=== PATIENT | female | born 1965 | race African-American/Black ===

== ENCOUNTER 2017-12-02 11:59 | Outpatient (CLI) ==
[2014-03-01 15:36] VITALS: BMI 30.2
--- NOTE | 2017-12-02 14:17 | DI ---
EXAM: Five views of the lumbar spine. History: Left sided sciatica Findings: No acute fracture or subluxation of the lumbar spine. Mild to moderate disc space narrowin g at L5-S1. Mild disc space narrowing seen elsewhere. A few small anterior osteophytes. Impression: No acute osseous abnormality of the cervical spine. Mild to moderate degenerative disc disease. If symptoms persist, recommend MRI
== END 2017-12-02 12:00 | disposition home or self-care (01) ==
LOC: RAD 11:59
PROVIDERS: ATTEND Physician Assistant
DX: M54.42 Lumbago with sciatica, left side (principal)

== ENCOUNTER 2017-12-11 11:40 | Outpatient (CLI) ==
[2014-03-01 15:36] VITALS: BMI 30.2
--- NOTE | 2017-12-11 13:23 | DI ---
EXAM: Two views of the chest. History: Chest pain. Comparison: Chest radiograph 02/16/2016 Findings: Heart size is normal. No focal consolidation. No appreciable pleural fluid and no pneumo thorax. No acute osseous abnormalities. Impression: No acute cardiopulmonary process
== END 2017-12-11 11:41 | disposition home or self-care (01) ==
LOC: RAD 11:40
PROVIDERS: ATTEND Physician Assistant
DX: R19.7 Diarrhea, unspecified (principal); Z86.2 Personal history of diseases of the blood and blood-forming organs and certain disorders involving the immune mechanism; M54.6 Pain in thoracic spine; R00.8 Other abnormalities of heart beat
CPT/HCPCS: 36415; 80053; 83540; 83550; 85025; 93005; 93010

== ENCOUNTER 2018-01-01 10:00 | Outpatient (RCR) | payer OTHER ==
[2014-03-01 15:36] VITALS: BMI 30.2
--- NOTE | 2017-12-13 14:16 | RS.OPPTEV2 ---
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 pt reports she is off work currently due to LBP as well as rapid heart rate. Prior Level of Function.....Patient was independent with: ADL's, Self Care, Work /Vocation, Ambulation/Mobility, Community Integration/Access Functional Limitations: Sleep, Lifting, Carrying, Standing, Bending, Squatting, Ambulation, Community Access/Integration Current Subjective/complaints:: pt states that she has been hurting since last month. pt states pain does interfere with sleep and if finds a comfortable position it is on L side. pt states pain does radiate into BLE L worse than R. Treatment Side (optional): N/A *Precautions: n/a Medical History Medical History: Hypertension Medical History Comments:: sarcoidosis Smoking Status: Never smoker Diagnostic Testing/Imaging:: Lumbar x ray: Mild to moderate DDD with disc space narrowing at L5-S1 Hx Home Medications: losartan, pepcid, hydrothiazide, flexeril, claritin D, tylenol. Patient's Goals: Decrease LBP Pain Assessment - Pain Description Pain Location: lower lumbar/SI area Current Pain Intensity: 7 Worst Pain Intensity: 8 Other Comments regarding Pain:: pt reports decreased pain to 5/10 after estim/ HP Functional Outcome Measure Oswestry LBP: 24 - G Codes & Severity Modifier G Codes & Modifier: n/a Source of G Code score: n/a Observation - Observation Posture: Forward Head, Rounded Shoulders Handedness: Right Gait - Gait Pattern General Gait Pattern Observation: No Deviations/Normal General Range of Motion: BUE and BLE WFL's Muscle Strength: BUE 5/5. BLE hip flex 4-/5 with pain, knee flex/ext 4/5, ankle DF/PF 4/5 - ROM Lumbar Flexion: Hand reach to ankles Sidebending to Left: Reach to Lateral Joint Line Sidebending to Right: Reach to Lateral Joint Line Lumbar Spine ROM Limitations: Soft Tissue Tightness, Muscle Weakness, Pain - Strength Trunk Extension: 3 Fair Trunk Flexion: 3- Fair- Trunk Lateral Flexion: 3- Fair- - Special Tests SLR Test: Positive Left, Positive Right Seated Dural Stretch Test: Positive Left, Positive Right SI Joint Compression: Positive Palpation Palpation Findings: Tenderness, Trigger Point, Muscle Guarding Comments:: pt with tenderness to lumbar spine, muscle guarding noted to L lumbar paraspinals, trigger points noted at L SI joint. Sensation - Sensation Right Upper Extremity: Intact/Normal Left Upper Extremity: Intact/Normal Right Lower Extremity: Intact/Normal Left Lower Extremity: Intact/Normal Balance - Sitting Balance Static Sitting Balance: Normal Dynamic Sitting Balance: Normal - Standing Balance Static Standing Balance: Good Dynamic Standing Balance: Good - Treatment Modality: Electrical Stim Unattended Parameters/Method Applied: IFC x 20 mins at 6 v. Treatment Area: lower lumbar Patient Position: Right Sidelying - Heat/Cryotherapy Treatment: Hot Pack Comments:: lumbar Interventions - Exercise/Activities/Manual Therapy Exercises/Activities: pt received gentle piriformis and hamstring stretches, knee to chest, isometric hip add x 5, pelvic tilt x 3 Manual Therapy: n/a HOME EXERCISE PROGRAM: pt given written HEP including: hamstring stretch, piriformis stretch, knee to chest, isometric hip add, pelvic tilt. - Charges Timed Code Treatment Minutes: 43 Total Treatment Time: 61 Procedures billed for this date of service:: eval low, estim unattended, HP EVALUATION COMPLEXITY LEVEL EVALUATION COMPLEXITY LEVEL: HISTORY: Low (HTN, LBP), EXAM OF BODY SYSTEMS: Medium (LBP, muscle tightness, radicular pain), CLINICAL PRESENTATION: Medium ( evolving), CLINICAL DECISION MAKING: Low Assessment Assessment: pt presents with LBP with radiculopathy in BLE Left worse than Right. pt with tightness in B hamstring and piriformis L worse than R. pt with muscle guarding and trigger points noted. Patient Education: Home Exercise Program, Education of Plan of Care Rehab Potential: Good Short Term Goals Goal #1: pt with decreased pain <7/10 at rest. Goal to be met by: 12/27/17 Goal #2: pt with decreased muscle tightness LLE equal to RLE Goal to be met by: 12/27/17 Goal #3: pt independent with initial HEP Goal to be met by: 12/27/17 Goal #4: pt report decreased radicular pain in BLE. 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 Goal to be met by: 01/10/18 Goal #4: pt rate pain < 5/10 at rest Goal to be met by: 01/10/18 Plan - Treatment to be Provided Procedures: Therapeutic Exercises, Therapeutic Activity, Manual Therapy, Massage , Patient Education Modalities: Electrical Stimulation, Ultrasound/Phonophoresis, Class IV Laser, Cryotherapy, Hot Packs - Treatment Plan Frequency: 2 X week Duration: 4 weeks ORDER # VISITS AND/OR THROUGH DATE: 01/10/18 - Treatment Code (1) Low back pain Code(s): M54.5 - LOW BACK PAIN Qualifiers: Chronicity: chronic Back pain laterality: unspecified Sciatica presence: with sciatica Sciatica laterality: bilateral sciatica Qualified Code(s): M54.41 - Lumbago with sciatica, right side; M54.42 - Lumbago with sciatica, left side; G89.29 - Other chronic pain (2) Muscle tightness Code(s): M62.89 - OTHER SPECIFIED DISORDERS OF MUSCLE (3) Degenerative disc disease at L5-S1 level Code(s): M51.36 - OTHER INTERVERTEBRAL DISC DEGENERATION, LUMBAR REGION
--- NOTE | 2017-12-18 13:30 | RS.OPPTDN ---
Subjective Date of Note: 12/18/17 Visit #: 2 Date of Evaluation: 12/13/17 Payer Source: Insurance Treatment Diagnosis: Low Back Pain Current Subjective/complaints:: Patient reports last treatment of HP and Estim helped to relieve some of her back pain. Reports pain decreased following treatment today. *Precautions: n/a Pain Assessment - Pain Description Pain Location: Lowback and S-I joints Pain Description: Sharp, Aching Current Pain Intensity: 7/10 prior to and 4/10 following treatment. - Treatment Modality: Electrical Stim Unattended Parameters/Method Applied: [id number] HVGC to 100p.v. with 4 large pads cross current to the bilateral lowback with HP prior to EX. Patient Position: Supine - Heat/Cryotherapy Treatment: Hot Pack (with Estim ) Interventions - Exercise/Activities/Manual Therapy Exercises/Activities: Assisted stretching gentle piriformis, hamstring stretches , and knee to chest. Isometric hip add and pelvic tilt. MET with isometric left hip ext and isometric hip flexion on right for pelvic alignment. Began bridging. Patient education of dx, body mechanics, and HEP. Patient given copy of bridging to add to HEP. Total minutes of Exercise: 25mins Manual Therapy: n/a HOME EXERCISE PROGRAM: pt given written HEP including: hamstring stretch, piriformis stretch, knee to chest, isometric hip add, pelvic tilt. Bridging. - Objective Findings Observations,measurements,etc.: Left LE longer than right by approx 3/4", partially resolved with MET today. - Charges Timed Code Treatment Minutes: 25mins Total Treatment Time: 49mins Procedures billed for this date of service:: HP, Estim unattended, EX2 Assessment: Patient responded well to treatment with reports of reduction in pain, and demos a reduction in leg length discrepancy. Patient Education: Education of diagnosis, Body/Joint mechanics, Home Exercise Program, Home Safety, Activity Modification Comments: Patient education of dx, body mechanics, safe position with lifting, and HEP. Patient given copy of new exercise. Patient demonstrates compliance with HEP?: Yes Short Term Goals Goal #1: pt with decreased pain <7/10 at rest. Goal to be met by: 12/27/17 Progress towards Goal:: Partially Met Goal #2: pt with decreased muscle tightness LLE equal to RLE Goal to be met by: 12/27/17 Progress towards Goal:: Progressing Goal #3: pt independent with initial HEP Goal to be met by: 12/27/17 Progress towards Goal:: Progressing Goal #4: pt report decreased radicular pain in BLE. Goal to be met by: 12/27/17 Rock Singer Goals Goal #1: pt with improved BLE strength 4 to 4+/5 Goal to be met by: 01/10/18 Goal #2: pt with improved flexibility in B hamstring/piriformis WFL's Goal to be met by: 01/10/18 Goal #3: pt report ability to perform daily household duties with decreased pain. Goal to be met by: 01/10/18 Goal #4: pt rate pain < 5/10 at rest Goal to be met by: 01/10/18 Plan PLAN OF CARE EXPIRES ON:: 01/10/18 ORDER # VISITS AND/OR THROUGH DATE: 01/10/18 PLAN: Continue with modalities and progress exercise to reduce pain and increase functional activity level.
--- NOTE | 2017-12-20 08:52 | RS.OPPTDN ---
Subjective Date of Note: 12/20/17 Visit #: 3 Date of Evaluation: 12/13/17 Payer Source: Insurance Treatment Diagnosis: Low Back Pain Current Subjective/complaints:: Patient reports last treatment helped to decrease her pain. States she is working on HEP and is returning to work this evening. *Precautions: n/a Pain Assessment - Pain Description Pain Location: lowback and S-I joints Current Pain Intensity: mild to mod - Treatment Modality: Electrical Stim Unattended Parameters/Method Applied: [id number] HVGC to 100p.v. with 4 large pads cross current to the bilateral lowback and S-I joints with HP prior to EX. Patient Position: Supine - Heat/Cryotherapy Treatment: Hot Pack ([id number] with Estim ) Interventions - Exercise/Activities/Manual Therapy Exercises/Activities: Assisted stretching gentle piriformis, hamstring stretches , and knee to chest. Isometric hip add and pelvic tilt. MET with isometric left hip ext and isometric hip flexion on right for pelvic alignment. Bridging. Reviewed HEP, no new additions. Total minutes of Exercise: 15mins Manual Therapy: n/a HOME EXERCISE PROGRAM: pt given written HEP including: hamstring stretch, piriformis stretch, knee to chest, isometric hip add, pelvic tilt. Bridging. - Charges Timed Code Treatment Minutes: 15mins Total Treatment Time: 40mins Procedures billed for this date of service:: HP, Estim unattended, EX Assessment: Patient responding well to treatment with reports of decreased pain. She appears to be consistent with HEP. Patient Education: Body/Joint mechanics, Home Exercise Program, Activity Modification Patient demonstrates compliance with HEP?: Yes Short Term Goals Goal #1: pt with decreased pain <7/10 at rest. Goal to be met by: 12/27/17 Progress towards Goal:: Partially Met Goal #2: pt with decreased muscle tightness LLE equal to RLE Goal to be met by: 12/27/17 Progress towards Goal:: Progressing Goal #3: pt independent with initial HEP Goal to be met by: 12/27/17 Progress towards Goal:: Progressing Goal #4: pt report decreased radicular pain in BLE. 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 Goal to be met by: 01/10/18 Goal #4: pt rate pain < 5/10 at rest Goal to be met by: 01/10/18 Plan PLAN OF CARE EXPIRES ON:: 01/10/18 ORDER # VISITS AND/OR THROUGH DATE: 01/10/18 PLAN: Progress exercise to increase patients functional activity level.
--- NOTE | 2017-12-24 10:08 | RS.OPPTDN ---
Subjective Date of Note: 12/24/17 Visit #: 4 Date of Evaluation: 12/13/17 Payer Source: Insurance Treatment Diagnosis: Low Back Pain Current Subjective/complaints:: Patient reports lowback and left S-I region pain has been much better. She reports pain is higher this morning after working a 10 hour shift last night. She states she is working on HEP as instructed. *Precautions: n/a Pain Assessment - Pain Description Pain Location: left lowback and S-I joint region Pain Description: Aching Current Pain Intensity: moderate Other Comments regarding Pain:: Reports pain as high as 8/10 last night, but has averaged 4/10 the last few days. - Treatment Modality: Electrical Stim Unattended Parameters/Method Applied: [id number] HVGC to 120p.v. 4 large pads cross current to the bilateral lumbar paraspinals and the left S-I joint area with HP prior to EX. Patient Position: Right Sidelying - Heat/Cryotherapy Treatment: Hot Pack (with Estim ) Interventions - Exercise/Activities/Manual Therapy Exercises/Activities: Assisted stretching piriformis, hamstring stretches, knee to chest, and figure 4 hip. Isometric hip add and pelvic tilt. MET with isometric left hip ext and isometric hip flexion on right for pelvic alignment, with and without manual assist. Bridging. Reveiwed self mobilization at wall with right hip flexion. Verbal and tactile cues to elicit correct muscle engagement with exercise. Total minutes of Exercise: 18mins Manual Therapy: n/a HOME EXERCISE PROGRAM: pt given written HEP including: hamstring stretch, piriformis stretch, knee to chest, isometric hip add, pelvic tilt. Bridging. - Objective Findings Observations,measurements,etc.: Patient continues to demo leg length discrepancy with left longer by approx 1/2", following MET it is reduced to just less than 1/4" approximately. - Charges Timed Code Treatment Minutes: 18mins Total Treatment Time: 42mins Procedures billed for this date of service:: HP, Estim unattended, EX Assessment: Patient responding to treatment with reports of an average pain rating at 4/10. She does report an increase in pain with long hours at work last night, but reduced with treatment and exercise. Patient Education: Home Exercise Program, Activity Modification Comments: Patient education of body mechanics with work activities. Patient encourgaged to increase bilaterla hamstring length to reduce pelvic malalignment. Patient demonstrates compliance with HEP?: Yes Short Term Goals Goal #1: pt with decreased pain <7/10 at rest. Goal to be met by: 12/27/17 Progress towards Goal:: Partially Met Goal #2: pt with decreased muscle tightness LLE equal to RLE Goal to be met by: 12/27/17 Progress towards Goal:: Progressing Goal #3: pt independent with initial HEP Goal to be met by: 12/27/17 Progress towards Goal:: Met Goal #4: pt report decreased radicular pain in BLE. 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 Goal to be met by: 01/10/18 Goal #4: pt rate pain < 5/10 at rest Goal to be met by: 01/10/18 Progress towards goal: Progressing Plan PLAN OF CARE EXPIRES ON:: 01/10/18 ORDER # VISITS AND/OR THROUGH DATE: 01/10/18 PLAN: Continue modalities and progressive exercise to reduce pain and increase patients functional activity level.
--- NOTE | 2017-12-27 14:11 | RS.OPPTDN ---
Subjective Date of Note: 12/27/17 Visit #: 5 Date of Evaluation: 12/13/17 Payer Source: Insurance Treatment Diagnosis: Low Back Pain Current Subjective/complaints:: Patient reports the pain is locaalized to back/ hips ,greater om the L today.She does not have radiculopathy. *Precautions: n/a - Treatment Modality: Electrical Stim Unattended Parameters/Method Applied: 20 mins. high volt to mid back and lumbar,channel 1 to mid back @ 60 pv,channel 2 @ 70 pv. Patient Position: Right Sidelying - Heat/Cryotherapy Treatment: Hot Pack (concurrent with e-stim) Interventions - Exercise/Activities/Manual Therapy Exercises/Activities: 20 mins.total ,for pelvic tilts,SKTC,piriformis ,LTR ,SI MET using wand for resistance,contract-relax for hamstring stretches. Total minutes of Exercise: 20 Manual Therapy: n/a HOME EXERCISE PROGRAM: pt given written HEP including: hamstring stretch, piriformis stretch, knee to chest, isometric hip add, pelvic tilt. Bridging. - Charges Timed Code Treatment Minutes: 40 Total Treatment Time: 40 Procedures billed for this date of service:: hp,e-stim ,ex Assessment: Patient has moderate L hamstring and piriformis tightness,but improves after stretches.She has no leg length discrepancy at end of session today.She is very motivated to improve ,is compliant to HEP.She does have slight increase in pain with L SKTC at end range of hip flexion. Patient Education: Education of diagnosis, Body/Joint mechanics, Home Exercise Program, Home Safety, Activity Modification, Education of Plan of Care Patient demonstrates compliance with HEP?: Yes Short Term Goals Goal #1: pt with decreased pain <7/10 at rest. Goal to be met by: 12/27/17 Progress towards Goal:: Partially Met Goal #2: pt with decreased muscle tightness LLE equal to RLE Goal to be met by: 12/27/17 (equal today) Progress towards Goal:: Progressing Goal #3: pt independent with initial HEP Goal to be met by: 12/27/17 Progress towards Goal:: Met Goal #4: pt report decreased radicular pain in BLE. Goal to be met by: 12/27/17 Progress towards Goal:: Progressing Alf Goals Goal #1: pt with improved BLE strength 4 to 4+/5 Goal to be met by: 01/10/18 Progress towards goal: Progressing Goal #2: pt with improved flexibility in B hamstring/piriformis WFL's Goal to be met by: 01/10/18 Progress towards goal: Progressing Goal #3: pt report ability to perform daily household duties with decreased pain. Goal to be met by: 01/10/18 Goal #4: pt rate pain < 5/10 at rest Goal to be met by: 01/10/18 Progress towards goal: Progressing Plan PLAN OF CARE EXPIRES ON:: 01/10/18 ORDER # VISITS AND/OR THROUGH DATE: 01/10/18 PLAN: Cont skilled PT to eliminate LBP.
--- NOTE | 2017-12-30 11:22 | RS.OPPTDN ---
Subjective Date of Note: 12/30/17 Visit #: 6 Date of Evaluation: 12/13/17 Payer Source: Insurance Treatment Diagnosis: Low Back Pain Current Subjective/complaints:: Patient reports she is progressing well. States her pain is decreasing and she is working on HEP as instructed. *Precautions: n/a Pain Assessment - Pain Description Pain Location: Lowback and Left S-I Current Pain Intensity: 5/10 Other Comments regarding Pain:: Reports average pain has decreased to 5-6/10. Reports no problems sleeping at night. - Treatment Modality: Electrical Stim Unattended Parameters/Method Applied: [id number] HVGC to 110p.v. with 4 large pads to the bilateral lower lumbar paraspinals and the left S-I joint with HP prior to EX. Patient Position: Sitting - Heat/Cryotherapy Treatment: Hot Pack ([id number] with Estim ) Interventions - Exercise/Activities/Manual Therapy Exercises/Activities: 16mins. Assisted stretching of bilateral hamstrings, SKTC , piriformis, and trunk rotation. Isometric hip flexion, alt sets of 5reps each side. Pelvic tilts and bridging. MET with isometric hip ext on right. Ended with additonal bridge. Total minutes of Exercise: 16mins Manual Therapy: n/a HOME EXERCISE PROGRAM: pt given written HEP including: hamstring stretch, piriformis stretch, knee to chest, isometric hip add, pelvic tilt. Bridging. - Charges Timed Code Treatment Minutes: 16mins Total Treatment Time: 41mins Procedures billed for this date of service:: HP, Estim unattended, EX Assessment: Patient reporting reduction in pain and consistently working on HEP. Patient Education: Body/Joint mechanics, Home Exercise Program, Activity Modification Comments: Discussed patient safety with daily activities at home and work. Patient demonstrates compliance with HEP?: Yes Short Term Goals Goal #1: pt with decreased pain <7/10 at rest. Goal to be met by: 12/27/17 Progress towards Goal:: Met Goal #2: pt with decreased muscle tightness LLE equal to RLE Goal to be met by: 12/27/17 (equal today) Progress towards Goal:: Partially Met Goal #3: pt independent with initial HEP Goal to be met by: 12/27/17 Progress towards Goal:: Met Goal #4: pt report decreased radicular pain in BLE. 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 Goal to be met by: 01/10/18 Progress towards goal: Progressing Goal #4: pt rate pain < 5/10 at rest Goal to be met by: 01/10/18 Progress towards goal: Partially Met (Rates at 5-6/10 on average) Plan PLAN OF CARE EXPIRES ON:: 01/10/18 ORDER # VISITS AND/OR THROUGH DATE: 01/10/18 PLAN: Continue modalities and progress exercise this week to reduce pain and increase functional activity level.
--- NOTE | 2018-01-01 13:33 | RS.OPPTDN ---
Subjective Date of Note: 01/01/18 Visit #: 7 Date of Evaluation: 12/13/17 Payer Source: Insurance Treatment Diagnosis: Low Back Pain Current Subjective/complaints:: Reports pain up this morning due to work midnight shift last night. Reports feeling much better after treatment today. *Precautions: n/a Pain Assessment - Pain Description Pain Location: left S-I and lower lumbar paraspinals Current Pain Intensity: 5/10, mild following treatment Other Comments regarding Pain:: Patient reports pain is up due to working midnight shift. - Treatment Modality: Electrical Stim Unattended Parameters/Method Applied: [id number] HVGC 80p.v. with 4 large pads to the left S- I joint and lumbar paraspinal with HP prior to EX. Patient Position: Right Sidelying - Heat/Cryotherapy Treatment: Hot Pack (with Estim) Interventions - Exercise/Activities/Manual Therapy Exercises/Activities: 17mins. Assisted stretching of bilateral hamstrings, SKTC , piriformis, and trunk rotation. MET with isometric hip ext on right and flexion on left in different positions. Isometric hip ER, 3s/3reps each. Pelvic tilt and bridging. Total minutes of Exercise: 17mins Manual Therapy: n/a HOME EXERCISE PROGRAM: pt given written HEP including: hamstring stretch, piriformis stretch, knee to chest, isometric hip add, pelvic tilt. Bridging. - Objective Findings Observations,measurements,etc.: Left LE slightly longer than right, resolved with MET. 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 Patient Education: Body/Joint mechanics, Home Exercise Program, Home Safety Comments: Continued patient education and emphasized safe body mechanics with lifting and ADL's. Patient demonstrates compliance with HEP?: Yes Short Term Goals Goal #1: pt with decreased pain <7/10 at rest. Goal to be met by: 12/27/17 Progress towards Goal:: Met Goal #2: pt with decreased muscle tightness LLE equal to RLE Goal to be met by: 12/27/17 (equal today) Progress towards Goal:: Partially Met Goal #3: pt independent with initial HEP Goal to be met by: 12/27/17 Progress towards Goal:: Met Goal #4: pt report decreased radicular pain in BLE. Goal to be met by: 12/27/17 Progress towards Goal:: Partially Met Vp Respiratory Goals Goal #1: pt with improved BLE strength 4 to 4+/5 Goal to be met by: 01/10/18 Progress towards goal: Progressing Goal #2: pt with improved flexibility in B hamstring/piriformis WFL's Goal to be met by: 01/10/18 Progress towards goal: Progressing Goal #3: pt report ability to perform daily household duties with decreased pain. Goal to be met by: 01/10/18 Progress towards goal: Progressing Goal #4: pt rate pain < 5/10 at rest Goal to be met by: 01/10/18 Progress towards goal: Met Plan PLAN OF CARE EXPIRES ON:: 01/10/18 ORDER # VISITS AND/OR THROUGH DATE: 01/10/18 PLAN: Progress with flexibility and trunk stability exercise to increase patients ability to perform duties at work and ADL's at home.
== END 2018-01-05 23:59 ==
PROVIDERS: ATTEND Physician Assistant
DX: M54.42 Lumbago with sciatica, left side (principal); M54.41 Lumbago with sciatica, right side; G89.29 Other chronic pain; M62.89 Other specified disorders of muscle; M51.36 Other intervertebral disc degeneration, lumbar region

== ENCOUNTER 2018-01-09 10:00 | Outpatient (RCR) ==
[2014-03-01 15:36] VITALS: BMI 30.2
--- NOTE | 2018-01-06 16:02 | RS.OPPTDN ---
Subjective Date of Note: 01/06/18 Visit #: 8 Date of Evaluation: 12/13/17 Payer Source: Insurance Treatment Diagnosis: Low Back Pain Current Subjective/complaints:: Patient reports she is doing much better with duties at work and home. 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 States she has periods of no pain and is sleeping without disruption from back/hip pain. *Precautions: n/a Pain Assessment - Pain Description Pain Location: left S-I joint and gluteal region Pain Description: soreness Current Pain Intensity: 4-5/10 Worst Pain Intensity: 5-6/10 Other Comments regarding Pain:: Reports she has period of no pain and is resting well. - Treatment Modality: Electrical Stim Unattended Parameters/Method Applied: [id number] HVGC to 110p.v. with 4 pads crossed over the left lower lumbar to upper gluteal region with HP prior to EX. Patient Position: Right Sidelying - Heat/Cryotherapy Treatment: Hot Pack (with Estim ) Interventions - Exercise/Activities/Manual Therapy Exercises/Activities: 14mins. Assisted stretching of bilateral hamstrings, SKTC , piriformis, and trunk rotation. MET with isometric hip ext on right and flexion on left in different positions. Isometric hip ER. Bridging. Unilateral bridge on the left with isometric hip flexion on the right. Then bridging with manual resistance laterally to increase pelvic stabililty. Total minutes of Exercise: 14mins Manual Therapy: n/a HOME EXERCISE PROGRAM: pt given written HEP including: hamstring stretch, piriformis stretch, knee to chest, isometric hip add, pelvic tilt. Bridging. Unilateral bridge on left with isometric hip flexion on the right. - Charges Timed Code Treatment Minutes: 14mins Total Treatment Time: 40mins Procedures billed for this date of service:: HP, Estim unattended, EX Assessment: Patient continues to report improvement in pain and with functional activities at home and work. Patient Education: Body/Joint mechanics, Home Exercise Program, Home Safety, Activity Modification Comments: Patient education on progressive MET for pelvic alignment and stability. Patient demonstrates compliance with HEP?: Yes Short Term Goals Goal #1: pt with decreased pain <7/10 at rest. Goal to be met by: 12/27/17 Progress towards Goal:: Met Goal #2: pt with decreased muscle tightness LLE equal to RLE Goal to be met by: 12/27/17 (equal today) Progress towards Goal:: Partially Met Goal #3: pt independent with initial HEP Goal to be met by: 12/27/17 Progress towards Goal:: Met Goal #4: pt report decreased radicular pain in BLE. 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 Goal to be met by: 01/10/18 Progress towards goal: Met Goal #4: pt rate pain < 5/10 at rest Goal to be met by: 01/10/18 Progress towards goal: Met Plan PLAN OF CARE EXPIRES ON:: 01/10/18 ORDER # VISITS AND/OR THROUGH DATE: 01/10/18 PLAN: Continue and progress pelvic alignment and stabililty exercise to increase patients ability to perform all functional activities at home and work.
--- NOTE | 2018-01-09 11:57 | RS.OPPTDN ---
Subjective Date of Note: 01/09/18 Visit #: 9 Date of Evaluation: 12/13/17 Payer Source: Insurance Treatment Diagnosis: Low Back Pain Current Subjective/complaints:: Patient reports she is pleased with the progress she has made with therapy. Reports she is able to perform all basic duties at work and home with little to no increased discomfort. States she is working on HEP as instructed and will continue following discharge. *Precautions: n/a Pain Assessment - Pain Description Pain Location: left lowback and S-I joint area Current Pain Intensity: 4/10 following full midnight shift Other Comments regarding Pain:: Reports periods of no discomfort and states she is able to sleep through the night without pain limiting her. - Treatment Modality: Electrical Stim Unattended Parameters/Method Applied: [id number] HVGC to 110p.v. with 4 large pads to the left S-I joint and lower lumbar paraspinals with HP prior to EX. Patient Position: Right Sidelying - Heat/Cryotherapy Treatment: Hot Pack ([id number] with Estim ) Interventions - Exercise/Activities/Manual Therapy Exercises/Activities: 18mins. Assisted stretching of bilateral hamstrings, SKTC , piriformis, and trunk rotation. MET with isometric hip ext on right and flexion on left in different positions. Isometric hip ER. Bridging. Unilateral bridge on the left with isometric hip flexion on the right. Then bridging with manual resistance laterally to increase pelvic stabililty. Total minutes of Exercise: 18mins Manual Therapy: n/a HOME EXERCISE PROGRAM: pt given written HEP including: hamstring stretch, piriformis stretch, knee to chest, isometric hip add, pelvic tilt. Bridging. Unilateral bridge on left with isometric hip flexion on the right. - Objective Findings Observations,measurements,etc.: Patients self assessment of Oswestry LBP Scale increased to 16 or 32% impairment (was 24 or 48% on Eval). This is a 16% score improvement. - Charges Timed Code Treatment Minutes: 18mins Total Treatment Time: 42mins Procedures billed for this date of service:: HP, Estim unattended, EX Assessment: Patient has completed all approved visits and met 7 of 8 treatment goals. She reported improved ability to perform functional activities at work and home. She is independent with HEP and will continue following discharge. Patient Education: Home Exercise Program, Home Safety, Activity Modification, Education of Plan of Care Comments: Finalized all patient edcuation of dx, body mechanics, safety, and HEP. Patient demonstrates compliance with HEP?: Yes Short Term Goals Goal #1: pt with decreased pain <7/10 at rest. Goal to be met by: 12/27/17 Progress towards Goal:: Met Goal #2: pt with decreased muscle tightness LLE equal to RLE Goal to be met by: 12/27/17 (equal today) Progress towards Goal:: Met Goal #3: pt independent with initial HEP Goal to be met by: 12/27/17 Progress towards Goal:: Met Goal #4: pt report decreased radicular pain in BLE. Goal to be met by: 12/27/17 Progress towards Goal:: Met (Discomfort localized to the left S-I joint area.) Intermediate Goals Goal #1: pt with improved BLE strength 4 to 4+/5 Goal to be met by: 01/10/18 Progress towards goal: Met Goal #2: pt with improved flexibility in B hamstring/piriformis WFL's Goal to be met by: 01/10/18 Progress towards goal: Partially Met Goal #3: pt report ability to perform daily household duties with decreased pain. Goal to be met by: 01/10/18 Progress towards goal: Met Goal #4: pt rate pain < 5/10 at rest Goal to be met by: 01/10/18 Progress towards goal: Met Plan PLAN OF CARE EXPIRES ON:: 01/10/18 ORDER # VISITS AND/OR THROUGH DATE: 01/10/18 PLAN: Discharge with HEP.
--- NOTE | 2018-01-09 12:00 | RS.QUICKDC ---
Discharge from PT Date of Discharge: 01/09/18 Number of Visits: 9 Reason for Discharge: Patient attended all 9 sessions per POC. She progressed well reporting a reduction in pain, an increase in functional activity level at home and work, and she met 7 of 8 treatment goals. She is independent with HEP and will continue following discharge. Discharge at this time.
== END 2018-02-05 23:59 ==
PROVIDERS: ATTEND Physician Assistant
DX: M54.41 Lumbago with sciatica, right side (principal); M54.42 Lumbago with sciatica, left side; G89.29 Other chronic pain; M62.89 Other specified disorders of muscle; M51.36 Other intervertebral disc degeneration, lumbar region

== ENCOUNTER 2018-05-28 13:22 | Outpatient (CLI) ==
[2014-03-01 15:36] VITALS: BMI 30.2
--- NOTE | 2018-05-28 14:20 | US ---
EXAM: Transvaginal pelvic ultrasound. History: Pelvic pain and pressure Comparison: CT abdomen pelvis 12/13/2017 Technique: Multiple sonographic images through the pelvis were obtained. Color duplex Doppler was u sed to interrogate vascular flow. Findings: The uterus measures 9.9 cm x 5.6 cm x 5.5 cm. Endometrium is heterogeneous and thickened measuring 1 .4 cm. 3.5 cm uterine fibroid. No fluid in the cul-de-sac. The left ovary was not seen due to obscu ration by bowel gas. Right ovary is normal in size. 2 cm right ovarian cyst. Impression: 1. Endometrial thickening could represent hyperplasia or endometrial carcinoma. Further evaluation recommended. 2. Uterine fibroid
== END 2018-05-28 13:23 | disposition home or self-care (01) ==
LOC: RAD 13:22
PROVIDERS: ATTEND Nurse Practitioner Family
DX: R10.2 Pelvic and perineal pain (principal)

== ENCOUNTER 2018-08-22 14:49 | Outpatient (CLI) ==
[2014-03-01 15:36] VITALS: BMI 30.2
== END 2018-08-22 14:50 | disposition home or self-care (01) ==
LOC: CAR 14:49
PROVIDERS: ATTEND Anesthesiology
DX: N92.1 Excessive and frequent menstruation with irregular cycle (principal)
CPT/HCPCS: 93005; 93010